=== PATIENT | female | born 1965 | race Caucasian/White ===

== ENCOUNTER 2023-01-28 21:27 | Emergency (ER) | payer MEDICAID, SELFPAY ==
[2023-01-28 21:29] VITALS: BP 188/92; PULSE 93; RESP 18; TEMP 36.8; O2SAT 98; BMI 37.1
[2023-01-28 22:17] LABS: Basophils Percent Auto 0.4 % (0.2-2.0); Eosinophils Absolute Auto 0.2 10^3/uL (0.0-0.7); Eosinophils Percent Auto 2.2 % (0.9-7.0); Hematocrit 39.5 % (36.0-48.0); Hemoglobin 13.4 g/dL (12.0-16.0); Immature Granulocytes Abs Auto 0.02 10^3/uL (0.00-0.03); Immature Granulocytes Pct Auto 0.3 % (0.0-0.5); Lymphocytes Absolute Auto 2.3 10^3/uL (1.2-3.8); Lymphocytes Percent Auto 29.9 % (20.5-60.0); Mean Corpuscular HGB Conc 33.9 g/dL (29.9-35.2); Mean Corpuscular Hemoglobin 35.4 pg (26.7-34.0); Mean Corpuscular Volume 104.5 fL (81.0-99.0); Mean Platelet Volume 10.1 fL (9.5-13.5); Monocytes Absolute Auto 0.6 10^3/uL (0.3-0.8); Monocytes Percent Auto 7.7 % (1.7-12.0); Neutrophils Absolute Auto 4.6 10^3/uL (1.4-6.5); Neutrophils Percent Auto 59.5 % (43.0-75.0); Platelet Count 200 10^3/uL (150-450); Red Blood Count 3.78 10^6/uL (4.20-5.40); Red Cell Distribution Width 13.3 % (11.0-15.0); White Blood Count 7.7 10^3/uL (4.0-11.0)
[2023-01-28 22:31] LABS: Alanine Aminotransferase 54 U/L (14-59); Albumin Level 3.5 g/dL (3.4-5.0); Alkaline Phosphatase 94 U/L (46-116); Anion Gap 11.3; Aspartate Amino Transferase 37 U/L (15-37); BUN Creatinine Ratio 9.2; Bilirubin Total 0.3 mg/dL (0.2-1.0); Calcium 8.6 mg/dL (8.5-10.1); Carbon Dioxide 26.1 mmol/L (21.0-32.0); Chloride 105 mmol/L (98-107); Estimated GFR (African America >60 (>=60); Estimated GFR (Non-African Ame >60 (>=60); Globulin 3.4 g/dL; Glucose 116 mg/dL (74-106); Potassium 3.4 mmol/L (3.5-5.1); Sodium 139 mmol/L (136-145); Total Protein 6.9 g/dL (6.4-8.2)
--- NOTE | 2023-01-28 22:58 | ED.ARRPALP1 ---
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 she was brought to us because her blood pressure was found to be elevated around 200 systolic for 1 reading, the patient did restart her blood pressure medication with losartan today after stopping her metoprolol and the patient denies any chest pain nausea vomiting she does have some chronic headaches sometimes but right now she have no complaints The patient denies any other complaint and she was coming here only because she was told need to come for her blood pressure Related Data Allergies Allergy/AdvReac Type Severity Reaction Status Date / Time No Known Drug Allergies Allergy Verified 01/28/23 21:33 Review of Systems ROS Status of ROS 10 or more systems reviewed and unremarkable except as noted in history and below Exam Narrative Exam Narrative: Nurses notes and vital signs reviewed and patient is not hypoxic. General: Well-appearing and in no apparent distress. Skin: Warm, dry, no pallor noted. No rash. Head: Normocephalic, atraumatic. Neck: Supple, non-tender. Eye: Pupils are equal, round and EOMI. No scleral icterus. Ears, Nose, Mouth, and Throat: TM are clear, no nasal mucosal hypertrophy. Oral mucosa is moist, no posterior oropharynx erythema, uvula is mid-line Cardiovascular: Regular Rate and Rhythm without murmur, gallop or rub. Respiratory: No accessory muscle use or respiratory distress. Lungs are clear to auscultation, no wheezing, rales or rhonchi Chest Wall: no tenderness Back: No midline thoracic or lumbar vertebral tenderness. No CVA tenderness Musculoskeletal: normal ROM, no calf or popliteal tenderness, no lower extremity edema/swelling GI: Abdomen is soft, non-distended. Normal bowel sounds. No masses appreciated. No tenderness to palpation. No rebound, guarding, or rigidity noted. Neurological: A&O x4. No cranial nerve dysfunction observed. No truncal ataxia. Moves all extremities. Sensation intact. Psychiatric: Cooperative and interactive. Normal mood and affect. Constitutional Vital Signs, click to edit/add: Last Vital Signs Temp 98.3 F 01/28/23 21:29 Pulse 93 H 01/28/23 21:29 Resp 18 01/28/23 21:29 BP 188/92 H 01/28/23 21:29 Pulse Ox 98 01/28/23 21:29 O2 Del Method Room Air 01/28/23 21:29 Course Vital Signs Vital signs: Vital Signs Temperature 98.3 F 01/28/23 21:29 Pulse Rate 93 H 01/28/23 21:29 Respiratory Rate 18 01/28/23 21:29 Blood Pressure 188/92 H 01/28/23 21:29 Pulse Oximetry 98 01/28/23 21:29 Oxygen Delivery Method Room Air 01/28/23 21:29 Temperature 98.3 F 01/28/23 21:29 Pulse Rate 93 H 01/28/23 21:29 Respiratory Rate 18 01/28/23 21:29 Blood Pressure 188/92 H 01/28/23 21:29 Pulse Oximetry 98 01/28/23 21:29 Oxygen Delivery Method Room Air 01/28/23 21:29 MDM - Arrhythmia/Palpitations MDM Narrative Medical decision making narrative: The patient CBC and chemistry showed no acute significant pathology and her blood pressure right now is 180 systolic but she will just started losartan 100 mg which is adequately enough right now especially that it was just started today, the patient to continue the same management right now and to follow-up with her primary care doctor within 7 to 10 days for further evaluation of her blood pressure The patient is to follow up with primary care physician in next 2-3 days or to return to the emergency department should any of the signs or symptoms worsen or new symptoms develop. The patient agrees with the following Diagnosis and Treatment plan and the patient will be discharged home. Lab Data Labs: Lab Results 01/28/23 Range/Units 22:11 WBC 7.7 (4.0-11.0) 10^3/uL RBC 3.78 L (4.20-5.40) 10^6/uL Hgb 13.4 (12.0-16.0) g/dL Hct 39.5 (36.0-48.0) % MCV 104.5 H (81.0-99.0) fL MCH 35.4 H (26.7-34.0) pg MCHC 33.9 (29.9-35.2) g/dL RDW 13.3 (11.0-15.0) % Plt Count 200 (150-450) 10^3/uL MPV 10.1 (9.5-13.5) fL Neut % (Auto) 59.5 (43.0-75.0) % Lymph % (Auto) 29.9 (20.5-60.0) % [place] % (Auto) 7.7 (1.7-12.0) % Eos % (Auto) 2.2 (0.9-7.0) % Baso % (Auto) 0.4 (0.2-2.0) % Neut # (Auto) 4.6 (1.4-6.5) 10^3/uL Lymph # (Auto) 2.3 (1.2-3.8) 10^3/uL [place] # (Auto) 0.6 (0.3-0.8) 10^3/uL Eos # (Auto) 0.2 (0.0-0.7) 10^3/uL Baso # (Auto) 0.0 (0.0-0.1) 10^3/uL Abs Immat Gran (auto) 0.02 (0.00-0.03) 10^3/uL Imm/Tot Granulo (auto) 0.3 (0.0-0.5) % Sodium 139 (136-145) mmol/L Potassium 3.4 L (3.5-5.1) mmol/L Chloride 105 (98-107) mmol/L Carbon Dioxide 26.1 (21.0-32.0) mmol/L Anion Gap 11.3 BUN 7.0 (7.0-18.0) mg/dL Creatinine 0.76 (0.55-1.02) mg/dL Est GFR ( Amer) >60 (>=60) Est GFR (Non-Af Amer) >60 (>=60) BUN/Creatinine Ratio 9.2 Glucose 116 H (74-106) mg/dL Calcium 8.6 (8.5-10.1) mg/dL Total Bilirubin 0.3 (0.2-1.0) mg/dL AST 37 (15-37) U/L ALT 54 (14-59) U/L Alkaline Phosphatase 94 (46-116) U/L Total Protein 6.9 (6.4-8.2) g/dL Albumin 3.5 (3.4-5.0) g/dL Globulin 3.4 g/dL Albumin/Globulin Ratio 1.0 Discharge Plan Discharge Chief Complaint: Arrhythmia/Palpitations Clinical Impression: Essential hypertension Patient Disposition: Home, Self-Care Time of Disposition Decision: 22:40 Condition: Good Instructions: Chronic Hypertension (ED) Stand Alone Forms: Portal Instructions Referrals: Physician,Non-Staff, MD [Primary Care Provider] - 1 week
== END 2023-01-28 22:51 | disposition home or self-care (01) ==
PROVIDERS: Emergency Provider Emergency Medicine
DX: I10 Essential (primary) hypertension (principal); Z79.899 Other long term (current) drug therapy
CPT/HCPCS: 36415; 80053; 85025; 99283